=== PATIENT | male | born 1970 | race Caucasian/White ===

== ENCOUNTER 2016-07-31 13:06 | Emergency (ER) | payer MEDICARE, MEDICAID ==
--- NOTE | ~2016-07-31 | ER ---
PATIENT'S NAME: MING QUESADA [facility] AGE: 46 Y [address] ROOM: [place] [address] LOCATION: [facility] ADMIT DATE: 07/31/2016 ER/Outpatient Report DISCHARGE DATE: 07/31/2016 FAMILY PHYSICIAN: Ming Johnson MD ATTENDING PHYSICIAN: Morales Belle Time of Arrival: Time of Evaluation: He was seen at 1315 hours. CHIEF COMPLAINT: Midepigastric pain. HISTORY OF PRESENT ILLNESS: The patient is a 46-year-old male, who presents with midepigastric pain, started around the , after he was put on Tylenol No. 3 for his chronic back pain. The patient denies any fevers or vomiting. Has had some loose stools. ALLERGIES: SUPPOSEDLY CODEINE, HOWEVER, HE HAS TAKEN TYLENOL NO. 3. CURRENT MEDICATIONS: Include: 1. Tylenol No. 3. 2. Zyprexa. 3. Librium. 4. Gabapentin. 5. Lisinopril. 6. Meloxicam. 7. He also said he has taken Naprosyn. PAST MEDICAL HISTORY: 1. Schizoaffective disorder. 2. Bipolar. 3. Hypertension. 4. Chronic back pain. PAST SURGICAL HISTORY: Surgeries include: Partial removal of his liver. SOCIAL HISTORY: Smoker, half pack a day. Denies any alcohol use. REVIEW OF SYSTEMS: GENERAL: No report of fevers or chills. PATIENT'S NAME: MING QUESDAA [facility] AGE: 46 Y [address] ROOM: [place] [address] LOCATION: [facility] ADMIT DATE: 07/31/2016 ER/Outpatient Report DISCHARGE DATE: 07/31/2016 FAMILY PHYSICIAN: Ming Johnson MD ATTENDING PHYSICIAN: Morales Belle HEAD AND ENT: No recent headache. Has several missing teeth. RESPIRATORY: No shortness of breath, cough. He is a smoker. GASTROINTESTINAL: Includes midepigastric pain. It does not radiate to his back. He has had some loose stools. He has had no hematemesis. GENITOURINARY: No flank pain. No dysuria. SKIN: No bruising. PHYSICAL EXAMINATION/OBJECTIVE FINDINGS: VITAL SIGNS: Temperature is 97.0, respiratory rate 16, pulse 75, his O2 sat is 93%, and blood pressure 132/86. GENERAL APPEARANCE: White male. He is alert, cooperative. HEENT: Head; normocephalic. Eyes; PERRL. No icterus. Nose; septum midline. Mouth has several missing teeth. Mouth somewhat dry which is somewhat chronic because of his psychiatric medicine. RESPIRATORY: Lungs; breath sounds diminished but clear. ABDOMEN: Some tenderness in midepigastric. No masses palpated. No rebound. Bowel sounds present. LABORATORY DATA: CBC: White count 7.9, hemoglobin 14.4, ANC was 4.4, and platelets were normal limits. CMS; glucose was slightly elevated at 105 as well as his AST at 46. Lipase 385, within normal limits. ASSESSMENT: 1. Midepigastric pain which he contributes to the codeine. 2. Schizoaffective disorder, bipolar. 3. Hypertension. 4. Chronic back pain. PLAN: We will give him a script for Zantac 150 b.i.d. Recommended clear liquids for 24 hours. Stop the Tylenol with codeine. Stop the Naprosyn and meloxicam. Follow up at [facility], if he does not improve or getting worse tomorrow. SIOBHAN PATIÑO FOR MD LASHELL MARTEL/guan[place]ito /[id number] d: 07/31/162101 t: 08/05/16 1107, OUTPATIENT REPORT
[~2016-07-31 13:06] MED LIST: COREG6.25 MG PO; DOXEPIN HCL25 MG PO; GABAPENTIN100 MG PO; LIBRIUM25 MG PO; MELATONIN5 MG PO; MOBIC15 MG PO; NORVASC5 MG PO; PAXIL40 M1 PO; PRINIVIL OR ZES10 MG PO; TRICOR145 MG PO; ZYPREXA10 MG PO
[2016-07-31 13:53] LABS: BASOPHIL # 0.1 K/uL (0.0-0.2); BASOPHIL % 1.1 %; EOSINOPHIL # 0.4 K/uL (0.0-0.5); EOSINOPHIL % 4.5 %; HEMATOCRIT 42.3 % (37.0-53.0); HEMOGLOBIN 14.4 g/dL (12.0-17.0); IMMATURE GRANULOCYTE % 0.4 %; LYMPHOCYTE # 2.4 K/uL (0.8-4.0); LYMPHOCYTE % 30.2 %; MONOCYTE # 0.6 K/uL (0.0-1.0); MONOCYTE % 7.5 %; NEUTROPHIL # (ANC) 4.4 K/uL (1.4-9.0); NEUTROPHIL % 56.3 %; NRBC % 0 /100WBC (0-0.00); RBC 4.65 M/uL (4.00-6.00); RDW-CV 12.8 % (11.9-14.6); WBC 7.9 K/uL (4.0-11.0)
[2016-07-31 14:07] LABS: ALK PHOS 76 IU/L (33-138); ALT 32 IU/L (12-78); ANION GAP 11.3 (10.0-19.0); AST 46 IU/L (10-40); BLOOD UREA NITROGEN 12 mg/dL (6-24); CALCIUM 8.8 mg/dL (8.5-10.5); CHLORIDE 107 mMol/L (96-110); CO2 25 mMol/L (22-32); ESTIMATED GFR (MDRD EQUATION) > 60; POTASSIUM 4.3 mMol/L (3.7-5.1); SODIUM 139 mMol/L (135-145); TOTAL BILIRUBIN 0.4 mg/dL (0.0-1.5); TOTAL PROTEIN 6.8 g/dL (6.0-8.4)
[2016-07-31 14:31] LABS: PLATELET COUNT 169 K/uL (150-450)
== END 2016-07-31 14:45 | disposition disaster alternative care site (69) ==
LOC: GMED 13:06
PROVIDERS: Physician Assistant Medical
DX: R10.13 Epigastric pain (principal); F25.0 Schizoaffective disorder, bipolar type; I10 Essential (primary) hypertension; G89.29 Other chronic pain; F17.210 Nicotine dependence, cigarettes, uncomplicated; Z79.899 Other long term (current) drug therapy

== ENCOUNTER → 2016-08-02 | Outpatient (CLI) | payer MEDICARE, MEDICAID | END | disposition disaster alternative care site (69) | LOC: GRAD 07-10 08:00 | DX: M54.5 Low back pain (principal); M51.27 Other intervertebral disc displacement, lumbosacral region; M47.816 Spondylosis without myelopathy or radiculopathy, lumbar region ==

== ENCOUNTER 2016-10-20 11:13 | Emergency (ER) | payer MEDICARE, MEDICAID ==
--- NOTE | ~2016-10-20 | ER ---
PATIENT'S NAME: MING QUESADA [facility] AGE: 46 Y [address] ROOM: [place], [place] [address] LOCATION: [facility] ADMIT DATE: 10/20/2016 ER/Outpatient Report DISCHARGE DATE: 10/20/2016 FAMILY PHYSICIAN: PHYSICIAN, NO ATTENDING PHYSICIAN: Morales Belle Time of Patient's Arrival: 1130 hours. Time of Patient's Evaluation: 1145 hours. CHIEF COMPLAINT: Tailbone injury. HISTORY OF PRESENT ILLNESS: This is a 46-year-old male who states he fell down in his closet and landed on top of a boot, felt like he may have fractured his tailbone. He states this occurred yesterday. He denies any other injury during the fall. Denies any recent illnesses. ALLERGIES: NO KNOWN ALLERGIES. MEDICATIONS: Please see medication list in nurse's notes. PAST MEDICAL HISTORY: Hypertension, liver tumor, and alcoholism. SOCIAL HISTORY: Smokes 1 pack a day. Does drink alcohol. REVIEW OF SYSTEMS: CONSTITUTIONAL: Denies any change in weight or fatigue. MUSCULOSKELETAL: He is complaining of tailbone pain. HEMATOLOGIC: No easy bruising or bleeding. SKIN: No lesions or rashes. PHYSICAL EXAMINATION: VITAL SIGNS: Weight 86 kg taken, blood pressure is 139/80, pulse 99, respirations 20, temperature 97.8 degrees tympanically, and saturations 97% room air. [place] Coma Score is 15. GENERAL: Alert, calm, well-developed male, in no acute distress. EXTREMITIES: No clubbing or cyanosis. He does have full range of motion of all limbs. MUSCULOSKELETAL: He has some slight tenderness with palpation over the lumbar spine and does have some tenderness over his tailbone as well. PATIENT'S NAME: MING QUESADA [facility] AGE: 46 Y [address] ROOM: [place], [place] [address] LOCATION: [facility] ADMIT DATE: 10/20/2016 ER/Outpatient Report DISCHARGE DATE: 10/20/2016 FAMILY PHYSICIAN: PHYSICIAN, NO ATTENDING PHYSICIAN: Morales Belle LUNGS: Clear to auscultation bilaterally. HEART: Regular rate and rhythm. LABORATORY DATA: None were done. X-RAYS: X-rays of the lumbar spine and coccyx were done. It does appear that he has fractured his tailbone. He has an old L1 compression fracture. IMPRESSION: Tailbone fracture from a fall. ASSESSMENT AND PLAN: I did give the patient reassurance. I advised him to ice it. He may use a donut to sit on for comfort. He may continue his naproxen for pain instead of Tylenol or ibuprofen. He should follow up with his primary care physician as needed. The patient understands and agrees with care. GENARO KIMBALL PA-C FOR MD LEXIE MARTEL/[place]ito /[id number] d: 10/20/16 2143 t: 10/23/16 0613, OUTPATIENT REPORT
== END 2016-10-20 12:27 | disposition disaster alternative care site (69) ==
LOC: GACC 11:13
DX: S32.2XXA Fracture of coccyx, initial encounter for closed fracture (principal); I10 Essential (primary) hypertension; F17.210 Nicotine dependence, cigarettes, uncomplicated; Z79.899 Other long term (current) drug therapy; W19.XXXA Unspecified fall, initial encounter